=== PATIENT | female | born 1990 | race Caucasian/White ===

== ENCOUNTER 2023-04-10 14:36 | Outpatient (CLI) | payer BC | END 2023-04-10 14:37 | disposition home or self-care (01) | LOC: CSHULT 14:36 | PROVIDERS: ATTEND Family Medicine | DX: Z34.82 Encounter for supervision of other normal pregnancy, second trimester (principal); Z3A.23 23 weeks gestation of pregnancy | CPT/HCPCS: 76805 ==

== ENCOUNTER 2023-07-26 08:57 | Inpatient (IN) | payer BC, MEDICAID ==
[~2023-07-26 08:57] MED LIST: Bupivacaine 0.25% HCL 30 ML VIAL ONE; ePHEDrine Sulfate 50 MG/10 ML VIAL ONE
[2023-07-26] MEDS: Lactated Ringer's 1,000 ML IV SCH (09:15)
[2023-07-26] MEDS ORDERED: hydrALAZINE 20 MG/ML VIAL SLOW IVP PRN ×2 (09:25→15:47)
[2023-07-26] MEDS ORDERED: Carboprost 250 MCG/ML AMP IM PRN (09:25)
[2023-07-26] MEDS ORDERED: HYDROcodone/Acetaminophen 5/325 mg Tablet PO PRN ×2 (09:25→15:47)
[2023-07-26] MEDS ORDERED: Ibuprofen 800 MG TAB PO PRN (09:25)
[2023-07-26] MEDS ORDERED: fentaNYL 50 mcg/mL 1 mL Vial SLOW IVP PRN (09:25)
[2023-07-26] MEDS ORDERED: Lidocaine 1% (PF) 30 ML VIAL SC PRN (09:25)
[2023-07-26] MEDS ORDERED: Acetaminophen 500 MG TAB PO PRN (09:25)
[2023-07-26] MEDS ORDERED: Diphenoxylate HCl/Atropine Tablet PO PRN (09:25)
[2023-07-26] MEDS ORDERED: Promethazine HCl 25 MG/ML VIAL IM PRN ×3 (09:25→15:47)
[2023-07-26] MEDS ORDERED: Methylergonovine 0.2 MG/ML VIAL IM PRN (09:25)
[2023-07-26] MEDS ORDERED: Tranexamic Acid 1,000 MG/10 ML VIAL IVP PRN (09:25)
[2023-07-26] MEDS ORDERED: Misoprostol 200 MCG TAB PR PRN (09:25)
[2023-07-26] MEDS ORDERED: Oxytocin 30 units/NS 500 ML 500 ML IV SCH ×2 (09:30)
[2023-07-26 10:00] LABS: Hematocrit 34.8 % (34.9-44.5); Hemoglobin 12.2 g/dL (12.0-15.5); Mean Corpuscular HGB CONC 35.1 g/dL (32.0-36.0); Mean Corpuscular Hemoglobin 29.3 pg (27.0-33.0); Mean Corpuscular Volume 83.7 fl (81.6-98.3); Mean Platelet Volume 10.4 fl (7.4-10.4); Platelet Count 308 10x3/uL (150-450); RBC Distribution Width 12.9 % (11.5-14.5); Red Blood Cell (RBC) Count 4.16 10x6/uL (3.90-5.03); White Blood Cell (WBC) Count 11.3 10x3/uL (3.5-10.5)
[2023-07-26] MEDS: fentaNYL 2 mcg/Ropivacaine 0.2% Epidural 100 ML CADD EPIDURAL SCH (10:00)
[2023-07-26] MEDS: Ondansetron PF 4 MG/2 ML Vial IVP PRN (10:15)
[2023-07-26 10:33] LABS: HBSAg Index 0.24 S/CO (0-0.99); Hep B Surf Ag - L&D Non-Reactive S/CO (NonReactive); Syphilis Antibody Nonreactive (Nonreactive); Syphilis Antibody Index 0.07 S/CO (<1.00 Non-Reactive)
[2023-07-26] MEDS: Oxytocin 30 units/NS 500 ML 500 ML IV SCH (10:58)
[2023-07-26 11:05] VITALS: BMI 31.0
[2023-07-26] MEDS ORDERED: ePHEDrine Sulfate 50 MG/10 ML VIAL SLOW IVP PRN (11:42)
[2023-07-26] MEDS ORDERED: Lactated Ringer's 500 ML IV PRN (11:42)
[2023-07-26] MEDS ORDERED: Naloxone HCl 0.4 mg/ml Vial IVP PRN ×2 (11:42)
[2023-07-26] MEDS ORDERED: Ondansetron PF 4 MG/2 ML Vial IVP PRN ×2 (11:42→15:47)
[2023-07-26] MEDS ORDERED: Moisturizing Cream (Eucerin) 113 GM JAR TOP PRN (11:42)
[2023-07-26] MEDS ORDERED: diphenhydrAMINE 50 MG/ML VIAL IVP PRN (11:42)
[2023-07-26] MEDS ORDERED: Acetaminophen 325 MG TAB PO PRN (11:42)
[2023-07-26] MEDS ORDERED: Communication Order-Pharmacy FS SCH (11:45)
[2023-07-26] MEDS ORDERED: diphenhydrAMINE 25 MG CAP PO PRN (15:47)
[2023-07-26] MEDS ORDERED: Milk Of Magnesia 30 ML UDCUP PO PRN (15:47)
[2023-07-26] MEDS ORDERED: Bisacodyl 10 MG SUPP PR PRN (15:47)
[2023-07-26] MEDS ORDERED: Boostrix 0.5 ML (Tdap) VIAL (>/=7 yrs of age) IM ONE (15:47)
[2023-07-26] MEDS ORDERED: Benzocaine-Menthol 82.5 ML CAN TOP PRN (15:47)
[2023-07-26] MEDS ORDERED: Lanolin Ointment 7 GM TUBE TOP PRN (15:47)
[2023-07-26] MEDS: fentaNYL/Ropivacaine Epidural 100 ML ONE (16:12)
[2023-07-26] MEDS: Ferrous Sulfate 325 MG TAB PO SCH (16:12)
[2023-07-26] MEDS: Ibuprofen 800 MG TAB PO SCH (21:03)
[2023-07-26] MEDS: Docusate 100 MG CAP PO SCH (21:03)
[2023-07-27] MEDS: Prenatal Vitamin 1 TAB PO SCH (07:37)
[2023-07-27] MEDS: HYDROcodone/Acetaminophen 5/325 mg Tablet PO PRN (07:38)
[2023-07-27 07:55] VITALS: TEMP 98.1
[2023-07-27 11:12] VITALS: BP 99/56
== END 2023-07-27 18:20 | disposition home or self-care (01) | DRG 807 ==
LOC: CSHLD 08:57 → CSHPP 15:35
PROVIDERS: ADMIT Family Medicine; ATTEND Family Medicine
PROC: 10E0XZZ Delivery of Products of Conception, External Approach (ICD-10-PCS; principal; 2023-07-26)
DX: O42.02 Full-term premature rupture of membranes, onset of labor within 24 hours of rupture (principal); Z37.0 Single live birth; Z3A.38 38 weeks gestation of pregnancy; O32.8XX0 Maternal care for other malpresentation of fetus, not applicable or unspecified
CPT/HCPCS: 36415; 51702; 85027; 86780; 86850; 86900; 86901; 87340; 99285; J0665; J2405; J2590; J7120